=== PATIENT | male | born 1935 | race American Indian/Alaskan Native ===

== ENCOUNTER 2016-05-17 12:08 | Day surgery (SDC) | payer MEDICARE ==
[2016-05-17] MEDS ORDERED: MYDRIACYL 1% OS ONE (12:40)
[2016-05-17] MEDS ORDERED: IOPIDINE OS ONE (12:40)
[2016-05-17] MEDS ORDERED: NEOFRIN OS ONE (12:40)
[2016-05-17 12:42] VITALS: BP 140/90
== END 2016-05-17 13:20 | disposition home or self-care (01) ==
LOC: OR 12:08
PROVIDERS: ATTEND Specialist
DX: E11.36 Type 2 diabetes mellitus with diabetic cataract (principal); H26.492 Other secondary cataract, left eye; I10 Essential (primary) hypertension; E78.00 Pure hypercholesterolemia, unspecified; I27.2 Other secondary pulmonary hypertension
CPT/HCPCS: 82962